=== PATIENT | female | born 1950 | race Caucasian/White ===

== ENCOUNTER → 2019-10-29 17:54 | Outpatient (CLI) | payer MEDICARE ==
[2013-01-08 13:23] VITALS: BMI 37.6
[~2019-10-29 17:54] MED LIST: CARAFATE1 G PO; COSOPT EYE DROPS5 ML EACH EYE; FLAGYL500 MG PO; LEVAQUIN500 MG PO; NORCO 5/325 TAB1 TA1 PO; NORVASC5 MG PO; PRILOSEC20 MG PO
== END | disposition home or self-care (01) ==
LOC: D.LABREF 17:54
PROVIDERS: ATTEND Emergency Medicine
DX: R19.5 Other fecal abnormalities (principal)